=== PATIENT | female | born 1955 | race African-American/Black ===

== ENCOUNTER 2018-04-17 19:35 | Emergency (ER) | payer OTHER ==
[~2018-04-17] VITALS: Ht 167.6 cm; Wt 75.0 kg
[2018-04-17] MEDS ORDERED: SODIUM CHLORIDE 0.9% 1,000 ML IV ONE (23:57)
[2018-04-17] MEDS ORDERED: ACETAMINOPHEN 325MG TABLET PO STA (23:57)
[2018-04-18 00:47] LABS: HEMATOCRIT. 37.8 % (36.0-48.0); HEMOGLOBIN. 12.4 g/dL (12.0-16.0); MEAN CORPUSCULAR HEMOGLOBIN 29.4 pg (28.0-32.0); MEAN CORPUSCULAR VOLUME 89.5 fL (81.0-99.0); PLATELET 226 x1000/uL (130-400); RED BLOOD CELL COUNT 4.23 mill/uL (4.2-5.4); RED CELL DISTRIBUTION WIDTH 14.7 % (11.6-14.6)
[2018-04-18 00:52] LABS: CHLORIDE 105 mEq/L (98-107)
[2018-04-18 02:20] LABS: PLATELET ESTIMATE NORMAL
[2018-04-18 05:04] VITALS: BP 142/74
== END 2018-04-18 05:05 | disposition home or self-care (01) ==
LOC: ER 19:35
DX: J40 Bronchitis, not specified as acute or chronic (principal); R11.10 Vomiting, unspecified; R07.89 Other chest pain; I10 Essential (primary) hypertension; Z98.890 Other specified postprocedural states
CPT/HCPCS: 36415; 71045; 80053; 85025; 93005; 96360; 99284; J7030